=== PATIENT | female | born 1985 | race Caucasian/White ===

== ENCOUNTER 2018-05-28 08:04 | Emergency (ER) | payer SELFPAY ==
[~2018-05-28] VITALS: Ht 167.6 cm; Wt 113.6 kg
[2018-05-28 08:11] VITALS: Ht 167.6 cm; Wt 113.6 kg
[2018-05-28] MEDS ORDERED: ZPAK PO (08:42)
[2018-05-28 09:32] VITALS: BP 120/68
== END 2018-05-28 09:33 | disposition home or self-care (01) ==
LOC: D.ER 08:04
DX: J06.9 Acute upper respiratory infection, unspecified (principal); J02.9 Acute pharyngitis, unspecified; R05 Cough

== ENCOUNTER 2018-09-11 18:22 | Emergency (ER) | payer MEDICAID ==
[~2018-09-11] VITALS: Ht 167.6 cm; Wt 113.6 kg
[~2018-09-11 18:22] MED LIST: ZPAK PO
[2018-09-11 18:42] VITALS: Ht 167.6 cm; Wt 113.6 kg
[2018-09-11] MEDS ORDERED: ROBAXIN500 MG PO (19:34)
[2018-09-11] MEDS ORDERED: VOLTAREN75 MG PO (19:34)
[2018-09-11 20:39] VITALS: BP 129/77
== END 2018-09-11 20:39 | disposition home or self-care (01) ==
LOC: D.ER 18:22
DX: M62.838 Other muscle spasm (principal); M54.2 Cervicalgia; V43.52XA Car driver injured in collision with other type car in traffic accident, initial encounter; Y93.89 Activity, other specified; Y92.410 Unspecified street and highway as the place of occurrence of the external cause

== ENCOUNTER 2019-02-19 20:35 | Emergency (ER) | payer MEDICAID ==
[~2019-02-19] VITALS: Ht 167.6 cm; Wt 113.6 kg
[~2019-02-19 20:35] MED LIST changes: +ROBAXIN500 MG PO; +VOLTAREN75 MG PO
[2019-02-19 20:53] VITALS: Ht 167.6 cm; Wt 113.6 kg
[2019-02-19] MEDS ORDERED: ACETIC ACID15 ML OTH (21:58)
[2019-02-19 22:25] VITALS: BP 130/74
== END 2019-02-19 22:26 | disposition home or self-care (01) ==
LOC: D.ER 20:35
DX: T65.891A Toxic effect of other specified substances, accidental (unintentional), initial encounter (principal); T20.42XA Corrosion of unspecified degree of lip(s), initial encounter